=== PATIENT | male | born 1980 | race African-American/Black ===

== ENCOUNTER 2018-11-04 17:32 | Emergency (ER) | payer OTHER ==
[~2018-11-04] VITALS: Ht 182.9 cm; Wt 77.1 kg
[2018-11-04 18:26] LABS: URINE CLARITY CLEAR; URINE COLOR YELLOW
[2018-11-04 18:27] LABS: ICTOTEST (BILI CONFIRMATORY) Negative (Negative); URINE BILIRUBIN NEGATIVE (Negative); URINE BLOOD NEGATIVE (Negative); URINE GLUCOSE-RANDOM* NEGATIVE (Negative); URINE KETONES NEGATIVE (Negative); URINE LEUKOCYTES-REFLEX NEGATIVE (Negative); URINE NITRITE-REFLEX NEGATIVE (Negative); URINE PROTEIN (DIPSTICK) 1+ (Negative); URINE SPECIFIC GRAVITY > 1.030 (1.005-1.035); URINE UROBILINOGEN 0.2 E.U./dl (0.2-1.0)
[2018-11-04 18:35] LABS: BACTERIA-REFLEX None Seen /HPF (None Seen); CASTS None Seen /LPF (None Seen); CRYSTALS None Seen /LPF (None Seen); MUCUS >6 Heavy strn/LPF (None Seen); SQUAMOUS 0-3 Few /LPF (0-3); URINE RBC 0-2 Rare /HPF (0-2); URINE WBC-REFLEX 0-5 Rare /HPF (0-5)
[2018-11-04] MEDS ORDERED: VISTARIL 25 MG25 M1 PO (18:41)
[2018-11-04 19:22] VITALS: BP 121/82
== END 2018-11-04 19:23 | disposition home or self-care (01) ==
LOC: ER 17:32
PROVIDERS: Emergency Medicine
DX: F41.9 Anxiety disorder, unspecified (principal); M79.10 Myalgia, unspecified site